=== PATIENT | female | born 1950 | race Caucasian/White ===

== ENCOUNTER → 2017-11-12 | Outpatient (CLI) | payer OTHER ==
[~2017-11-12] MED LIST: NAPR500 PO; OXYACE5T PO; SIMV10 PO
[2017-11-12 15:04] LABS: Stool Occult Bld Immuno 1 Negative (NEGATIVE)
== END | disposition home or self-care (01) ==
LOC: LAB SHORT 10:57 → LAB 10:57
PROVIDERS: Nurse Practitioner Family
DX: Z12.11 Encounter for screening for malignant neoplasm of colon (principal); Z11.59 Encounter for screening for other viral diseases; E11.9 Type 2 diabetes mellitus without complications
CPT/HCPCS: 82274

== ENCOUNTER 2020-01-13 18:52 | Emergency (ER) | payer OTHER ==
[~2020-01-13] VITALS: Ht 165.1 cm; Wt 93.9 kg
[2020-01-13] MEDS ORDERED: KEFLEX500 MG PO (22:09)
== END 2020-01-13 22:26 | disposition home or self-care (01) ==
LOC: ER 18:52
DX: S81.811A Laceration without foreign body, right lower leg, initial encounter (principal); E11.9 Type 2 diabetes mellitus without complications; Z79.899 Other long term (current) drug therapy; Z23 Encounter for immunization; W01.0XXA Fall on same level from slipping, tripping and stumbling without subsequent striking against object, initial encounter; Y92.008 Other place in unspecified non-institutional (private) residence as the place of occurrence of the external cause
CPT/HCPCS: 12034; 90471; 90714; 99282-25; A9270-GY

== ENCOUNTER 2020-04-10 00:47 | Day surgery (SDC) | payer OTHER ==
[~2020-04-10 00:47] MED LIST changes: +KEFLEX500 MG PO
== END 2020-04-10 22:55 | disposition home or self-care (01) ==
LOC: WOUND 00:47
DX: I96 Gangrene, not elsewhere classified (principal); L97.812 Non-pressure chronic ulcer of other part of right lower leg with fat layer exposed; S81.811D Laceration without foreign body, right lower leg, subsequent encounter; H26.9 Unspecified cataract; J45.909 Unspecified asthma, uncomplicated; M19.90 Unspecified osteoarthritis, unspecified site; Z79.899 Other long term (current) drug therapy; W18.40XD Slipping, tripping and stumbling without falling, unspecified, subsequent encounter
CPT/HCPCS: G0463

== ENCOUNTER 2020-04-18 00:26 | Day surgery (SDC) | payer OTHER | END 2020-04-18 23:09 | disposition home or self-care (01) | LOC: WOUND 00:26 | DX: L97.912 Non-pressure chronic ulcer of unspecified part of right lower leg with fat layer exposed (principal); Z79.899 Other long term (current) drug therapy | CPT/HCPCS: A9270; G0463 ==

== ENCOUNTER 2020-04-25 00:24 | Day surgery (SDC) | payer OTHER | END 2020-04-25 22:47 | disposition home or self-care (01) | LOC: WOUND 00:24 | DX: L97.912 Non-pressure chronic ulcer of unspecified part of right lower leg with fat layer exposed (principal) | CPT/HCPCS: G0463 ==

== ENCOUNTER 2020-05-02 00:16 | Day surgery (SDC) | payer OTHER | END 2020-05-02 23:45 | LOC: WOUND 00:16 | DX: L97.912 Non-pressure chronic ulcer of unspecified part of right lower leg with fat layer exposed (principal) | CPT/HCPCS: A9270; G0463 ==

== ENCOUNTER 2020-05-09 01:16 | Day surgery (SDC) | payer OTHER | END 2020-05-09 22:47 | disposition home or self-care (01) | LOC: WOUND 01:16 | DX: T81.33XD Disruption of traumatic injury wound repair, subsequent encounter (principal); Y83.8 Other surgical procedures as the cause of abnormal reaction of the patient, or of later complication, without mention of misadventure at the time of the procedure; R73.03 Prediabetes; M19.90 Unspecified osteoarthritis, unspecified site; J45.909 Unspecified asthma, uncomplicated; M81.0 Age-related osteoporosis without current pathological fracture | CPT/HCPCS: A9270; G0463 ==

== ENCOUNTER 2020-05-16 01:14 | Day surgery (SDC) | payer OTHER | END 2020-05-16 23:40 | disposition home or self-care (01) | LOC: WOUND 01:14 | DX: L97.912 Non-pressure chronic ulcer of unspecified part of right lower leg with fat layer exposed (principal); M19.90 Unspecified osteoarthritis, unspecified site; M81.0 Age-related osteoporosis without current pathological fracture; J45.909 Unspecified asthma, uncomplicated | CPT/HCPCS: G0463 ==

== ENCOUNTER 2020-06-09 00:51 | Day surgery (SDC) | payer OTHER | END 2020-06-09 23:01 | disposition home or self-care (01) | LOC: WOUND 00:51 | DX: T81.33XA Disruption of traumatic injury wound repair, initial encounter (principal); Y83.8 Other surgical procedures as the cause of abnormal reaction of the patient, or of later complication, without mention of misadventure at the time of the procedure | CPT/HCPCS: 11102; 87102; A9270 ==

== ENCOUNTER 2020-06-16 00:36 | Day surgery (SDC) | payer OTHER | END 2020-06-16 22:39 | disposition home or self-care (01) | LOC: WOUND 00:36 | DX: T81.33XD Disruption of traumatic injury wound repair, subsequent encounter (principal); Y83.8 Other surgical procedures as the cause of abnormal reaction of the patient, or of later complication, without mention of misadventure at the time of the procedure | CPT/HCPCS: A9270; G0463 ==

== ENCOUNTER 2020-06-30 00:32 | Day surgery (SDC) | payer OTHER | END 2020-06-30 22:45 | disposition home or self-care (01) | LOC: WOUND 00:32 | DX: L97.812 Non-pressure chronic ulcer of other part of right lower leg with fat layer exposed (principal) | CPT/HCPCS: G0463 ==

== ENCOUNTER 2020-07-07 00:33 | Day surgery (SDC) | payer OTHER | END 2020-07-07 22:54 | disposition home or self-care (01) | LOC: WOUND 00:33 | DX: Z09 Encounter for follow-up examination after completed treatment for conditions other than malignant neoplasm (principal); Z87.2 Personal history of diseases of the skin and subcutaneous tissue | CPT/HCPCS: G0463 ==

== ENCOUNTER → 2020-10-26 | Outpatient (CLI) | payer OTHER ==
[2020-10-26 18:56] LABS: Microalb/Creat Ratio UR, Rand Unable to Calculate mg/g (0.000-30.000); Microalbumin, Random Urine <5.000 mg/L (0.000-20.000)
== END | disposition home or self-care (01) ==
LOC: LAB 13:41 → LAB SHORT 13:41
PROVIDERS: Nurse Practitioner Family
DX: E11.9 Type 2 diabetes mellitus without complications (principal)
CPT/HCPCS: 82043; 82570

== ENCOUNTER 2021-06-04 06:10 | Day surgery (SDC) | payer OTHER ==
[~2021-06-04 06:10] MED LIST changes: +ALBU90OI INH; +ALEN70 PO; +ALLER-TEC PO; +ASPI81CH PO; +Acetaminophen650 M1 PO; +Calcium Carbon500 MG PO; +FISH OIL 1,2001 EAC7 PO; +IBUP200 PO; +MULTI-VITAMIN1 EAC2 PO; +PEPCID20 MG PO; +SUPER B COMPLEX PO; +SYMBICORT 80-10.2 GM INH; +VITAMIN D310 MC4 PO; +[UNRECOGNIZED DRUG - CODE] PO
--- NOTE | 2021-06-04 18:51 | NUR ---
SHIFT SUMMARY WORKED w/ THERAPY. INITIALLY STRUGGLED w/ N/V BUT NOW EATING & DRINKING WELL. VOIDING EASILY. NO DRAINAGE NOTED TO GAUZE ON LOWER PART OF INC.
--- NOTE | 2021-06-05 | NUR ---
GAUZE APPLIED TO ONE SMALL SPOT ON THE INCISION WRAPPED WITH COVAN RELATED TO MINIMAL BLEEDING, PT. TOLERATED WELL.
--- NOTE | 2021-06-05 03:18 | NUR ---
SHIFT SUMMARY: PT. AOX4, ABLE TO MAKE NEEDS KNOWN, USES THE CALL LIGHT.COMPLAINTS OF PAIN MEDICATED PER EMAR. ABLE TO MANEUVER RLE USING A GAIT BELT BY PT. HERSELF LEARNED FROM REHAB WITH PREVIOUS KNEE SURGERY. VOIDING WELL TO THE BEDSIDE COMMODE WITH 1 PERSON ASSIST USING A WALKER & GAITBELT. PRIMO DRESSING & GAUZE TO R KNEE INCISION WITH SOME STAINS OF DRIED BLOOD. 1 SMALL AREA ALONG INCISION LINE OOZING MINIMAL AMOUNT OF BLOOD, LIGHT PRESSURE APPLIED WITH GAUZE & COVAN WRAP, PT. TOLERATED WELL. NO ACUTE CHANGES NOTED, WILL CONTINUE TO MONITOR.
[2021-06-05 05:24] LABS: BASOPHILS ABSOLUTE AUTO 0.03 K/mm3 (0.00-0.23); BASOPHILS PERCENT AUTO 0 % (0-2); EOSINOPHILS PERCENT AUTO 1 % (0-6); Hematocrit 39.1 % (33.0-51.0); Hemoglobin 12.7 g/dL (11.5-16.0); IMMATURE GRAN ABSOLUTE AUTO 0.03 K/mm3 (0.00-0.10); IMMATURE GRAN PERCENT AUTO 0 % (0-1); LYMPHOCYTES ABSOLUTE AUTO 1.59 K/mm3 (0.84-5.20); LYMPHOCYTES PERCENT AUTO 16 % (21-46); MONOCYTES ABSOLUTE AUTO 1.01 K/mm3 (0.16-1.47); MONOCYTES PERCENT AUTO 10 % (4-13); Mean Corpuscular HGB 28.5 pg (26.0-34.0); Mean Corpuscular HGB Conc 32.5 g/dL (31.5-36.5); Mean Corpuscular Volume 88 fL (80-100); Mean Platelet Volume 10.9 fL (9.1-12.4); NEUTROPHILS ABSOLUTE AUTO 7.42 K/mm3 (1.96-9.15); NEUTROPHILS PERCENT AUTO 73 % (41-73); Platelet Count 295 K/mm3 (150-400); RDW Coefficient Variation 12.6 % (11.7-14.2); RDW Standard Deviation 40.7 fL (35.1-46.3); Red Blood Cell Count 4.46 M/mm3 (3.80-5.20); White Blood Cell Count 10.18 K/mm3 (4.00-11.30)
[2021-06-05 05:36] LABS: Anion Gap 6 mmol/L (6-16); Blood Urea Nitrogen 16 mg/dL (8-24); CO2, Blood 26 mmol/L (21-32); Calcium, Blood 8.4 mg/dL (8.5-10.1); Chloride, Blood 107 mmol/L (98-108); Creatinine, Blood 0.64 mg/dL (0.40-1.00); Glomerular Filtration Rate >60 (60-); Glucose, Blood 148 mg/dL (70-99); Magnesium, Blood 2.1 mg/dL (1.6-2.4); Potassium, Blood 3.4 mmol/L (3.5-5.5); Sodium, Blood 139 mmol/L (136-145)
[2021-06-05] MEDS ORDERED: ROXICODONE5 MG PO (10:56)
--- NOTE | 2021-06-05 14:15 | NUR ---
DISCHARGE SUMMARY A/O X4, VSS, TOLERATING PO, PAIN WELL MANAGED, VOIDING WELL. DISCUSSED DISCHARGE INSTRUCTIONS, WENT OVER HOME CARE AND FOLLOW UP APPOINTMENT INFORMATION, PROVIDED PATIENT WITH SCRIPTS FOR PRESCRIBED MEDICATIONS AND DISCUSSED THIER USE. ALL QUESTIONS ANSWERED, CONTACT INFORMATION GIVEN SHOULD ANYTHING COME UP AFTE DISCHARGE. PT ESCORTED OUT VIA WC BY ELECTRICIAN MASTER WITH ALL PERSONAL POSSESSIONS.
== END 2021-06-05 13:56 | disposition home or self-care (01) ==
LOC: ORSCMMR 06:10 → ORD 07:30 → SURS 10:45 → ORSCMMR 06-05 13:56
PROVIDERS: Orthopaedic Surgery
PROC: 0SRC0J9 Replacement of Right Knee Joint with Synthetic Substitute, Cemented, Open Approach (ICD-10-PCS; principal; 2021-06-04 07:30)
PROC: 8E0Y0CZ Robotic Assisted Procedure of Lower Extremity, Open Approach (ICD-10-PCS; principal; 2021-06-04 07:30)
DX: M17.11 Unilateral primary osteoarthritis, right knee (principal); E78.5 Hyperlipidemia, unspecified; E11.9 Type 2 diabetes mellitus without complications; Z79.899 Other long term (current) drug therapy; Z96.652 Presence of left artificial knee joint
CPT/HCPCS: 27447; S2900; 36415; 73560-RT; 80048; 82947; 83735; 85025; 97110; 97116; 97162; A9270; C1713; C1776; J0171; J0690; J0735; J1100; J1885; J2250; J2370; J2405; J2550; J2704; J2795; J3010; J7120

== ENCOUNTER → 2022-08-28 | Outpatient (CLI) | payer OTHER ==
[~2022-08-28] MED LIST changes: +ROXICODONE5 MG PO
== END | disposition home or self-care (01) ==
LOC: LAB SHORT 12:24 → PLD 12:24
DX: D48.5 Neoplasm of uncertain behavior of skin (principal); L57.0 Actinic keratosis
CPT/HCPCS: 88305

== ENCOUNTER 2022-10-30 06:30 | Inpatient (IN) | payer OTHER ==
[~2022-10-30] VITALS: Ht 160 cm; Wt 95.8 kg
[2022-10-30] VITALS (15 sets, daily range): BP systolic 107–147; BP diastolic 53–73
[~2022-10-30 06:30] MED LIST changes: +METO25ER PO
--- NOTE | 2022-10-30 07:39 | NUR ---
Ambulatory in Day Surgery. Pre-Op teaching done. Pt verbalizes understanding. Patient confirms NPO status and agrees with scheduled surgery. History, Chart, Medications and Allergies reviewed before start of procedure. Patient reports completing Chlorhexadine shower X2 prior to admission to hospital. Lungs clear T/O to Auscultation. Patient States Post-Procedure ride home has been arranged.
--- NOTE | 2022-10-30 08:37 | NUR ---
10/30/22 0837 Nedra Thornton OPEN WOUND NOTED TO LEFT ELBOW. DR. TOSCANO AWARE.
--- NOTE | 2022-10-30 12:06 | NUR ---
PATIENT CAME BACK FROM PACU TODAY AT 1200. POD 0 RIGHT TOTAL SHOULDER PATIENT IS DROWSY BUT IS AWAKENED TO VERBAL STIMULI. VS ARE WNL. PATIENT REPORTS NUMBNESS TO HER RIGHT ARM FROM JOINT INJECTION BUT RADIAL PULSE IS STRONG AND FINGERS ARE WARM TO TOUCH. HER RIGHT SHOULDER HAS THE CLEAR MESH PRIMEO DRESSING THAT IS C/D/I. ARM SLING IS IN PLACE. PATIENT IS LAYING IN BED WITH CALL LIGHT WITHIN REACH. DENIES NAUSEA OR VOMITING OR PAIN AT THIS TIME.
[2022-10-30] MEDS ORDERED: OXYC10TA19 PO (12:17)
[2022-10-30] MEDS ORDERED: ACET500 PO (12:17)
--- NOTE | 2022-10-30 15:20 | NUR ---
SHIFT SUMMARY: POD 0 RIGHT TOTAL SHOULDER PATIENT IS A&OX4. VS ARE WNL AND IS ON RA. PATIENT STILL REPORTS NO PAIN ON HER RIGHT ARM. SHE IS ABLE TO MOVE ALL FINGERS AND TOES. FINGERS ARE WARM TO THE TOUCH WITH A STRONG RADIAL PULSE TO THE RIGHT ARM. HER PRIMEO DRESSING ON THE RIGHT SHOULDER IS C/D/I WITH SLING IN PLACE. PATIENT IS A SBA WITH AMBULATION. PATIENT IS TOLERATING PO INTAKE AND IS VOIDING. PATIENT IS SITTING UP IN A RECLINER WITH CALL LIGHT IN REACH AND FAMILY AT BEDSIDE.
[2022-10-31 03:01] VITALS: BP 126/59
[2022-10-31 04:20] LABS: BASOPHILS ABSOLUTE AUTO 0.01 K/mm3 (0.00-0.23); BASOPHILS PERCENT AUTO 0 % (0-2); EOSINOPHILS ABSOLUTE AUTO 0.02 K/mm3 (0.00-0.68); EOSINOPHILS PERCENT AUTO 0 % (0-6); Hematocrit 37.7 % (33.0-51.0); Hemoglobin 12.3 g/dL (11.5-16.0); IMMATURE GRAN ABSOLUTE AUTO 0.04 K/mm3 (0.00-0.10); IMMATURE GRAN PERCENT AUTO 0 % (0-1); LYMPHOCYTES ABSOLUTE AUTO 1.45 K/mm3 (0.84-5.20); LYMPHOCYTES PERCENT AUTO 11 % (21-46); MONOCYTES ABSOLUTE AUTO 1.26 K/mm3 (0.16-1.47); MONOCYTES PERCENT AUTO 9 % (4-13); Mean Corpuscular HGB 28.7 pg (26.0-34.0); Mean Corpuscular HGB Conc 32.6 g/dL (31.5-36.5); Mean Corpuscular Volume 88 fL (80-100); Mean Platelet Volume 11.1 fL (9.1-12.4); NEUTROPHILS ABSOLUTE AUTO 10.68 K/mm3 (1.96-9.15); NEUTROPHILS PERCENT AUTO 79 % (41-73); Platelet Count 276 K/mm3 (150-400); RDW Standard Deviation 38.5 fL (35.1-46.3); Red Blood Cell Count 4.28 M/mm3 (3.80-5.20); White Blood Cell Count 13.46 K/mm3 (4.00-11.30)
--- NOTE | 2022-10-31 04:20 | NUR ---
SUMMARY POD1 R SHOULDER, PATIENT AMBULATING IN ROOM SBA, VOIDING ADEQUATELY. NEW IV OBTAINED AND ABX INFUSED. PAIN MANAGED WELL, AND TOLERATING PO INTAKE. POLAR PACK IN PLACE, SCD'S IN PLACE. PLAN FOR PT/OT AND DISCHARGE HOME. NO IGNITION SOURCES FOUND. CALL LIGHT IN REACH. VSS, WILL PASS ON TO DAY RN.
[2022-10-31 04:47] LABS: Calcium, Blood 8.4 mg/dL (8.5-10.1); Creatinine, Blood 0.68 mg/dL (0.40-1.00); Potassium, Blood 3.8 mmol/L (3.5-5.5)
[2022-10-31 07:41] VITALS: BP 108/66
--- NOTE | 2022-10-31 12:14 | NUR ---
DISCHARGE SUMMARY POD1 R REVERSE TSA, A/OX4, VSS, TOLERATING PO, AMBULATING WITH MINIMAL ASSISTANCE, PAIN WELL MANAGED, IV REMOVED PRIOR TO DC. DISCUSSED DISCHARGE INFORMATION WITH HER INCLUDING HOME CARE, MEDICATIONS, AND FOLLOW UP APPOINTMENTS. NO QUESTIONS AT THIS TIME, ESCORTED OUT VIA WC TO HER DAUGHTERS POV TO GO HOME.
== END 2022-10-31 12:10 | disposition home or self-care (01) | DRG 483 ==
LOC: SURS 06:30 → PRE IP 07:30 → SURS 11:48
PROVIDERS: ADMIT Orthopaedic Surgery
PROC: 0RRJ00Z Replacement of Right Shoulder Joint with Reverse Ball and Socket Synthetic Substitute, Open Approach (ICD-10-PCS; principal; 2022-10-30 07:30)
DX: M19.011 Primary osteoarthritis, right shoulder (principal); M75.121 Complete rotator cuff tear or rupture of right shoulder, not specified as traumatic; I10 Essential (primary) hypertension; J45.909 Unspecified asthma, uncomplicated; E78.5 Hyperlipidemia, unspecified; Z96.653 Presence of artificial knee joint, bilateral; Z98.49 Cataract extraction status, unspecified eye; Z90.89 Acquired absence of other organs; Z90.710 Acquired absence of both cervix and uterus; Z87.891 Personal history of nicotine dependence; Z98.1 Arthrodesis status; Z79.899 Other long term (current) drug therapy; Z79.1 Long term (current) use of non-steroidal anti-inflammatories (NSAID)
CPT/HCPCS: 36415; 73030; 80048; 82947; 83735; 85025; 97110; 97116; 97162; 97165; 97530; A9270; C1713; C1776; J0171; J0330; J0690; J0735; J1100; J1885; J2250; J2405; J2704; J2765; J2795; J3010; J7120